=== PATIENT | female | born 1955 | race Caucasian/White ===

== ENCOUNTER 2018-04-22 14:11 | Emergency (ER) | payer SELFPAY ==
[2018-04-22 14:23] VITALS: BP 157/88; PULSE 68; TEMP 97.8; BMI 27.0
--- NOTE | 2018-04-22 17:53 | PDOC ---
Attending Attestation - Resident Resident Name: JazSaPaloma - ED Attending Attestation I have performed the following: I have examined & evaluated the patient, The case was reviewed & discussed with the resident, I agree w/resident's findings & plan, Exceptions are as noted - HPI HPI: 04/22/18 17:52 62 yo female p/w epigastric pain and urinary problems-"burning upon urination" . Denies nausea,vomiting or fever. She has had epigastric pain for a month 04/22/18 21:44 - Physicial Exam PE: 04/22/18 21:40 62 yo female with epigastric discomfort head ncat neck supple lungs cta b/l cvs [id number] abd no rebound,no guarding ext no deformities neuro axox3,ambulatory skin warm and dry psych appropriate 04/23/18 01:17 - Medical Decision Making 04/22/18 21:41 ekg is NSR @ 60 bpm.LVH 04/23/18 01:22 ct scan abd/pel did NOT show any diverticultis and also there was no evidence of hydronephrosis or kidney stones pt will follow up with GI
[2018-04-22] MEDS ORDERED: MAG HYDROX/AL HYDROX/SIMETH 30 ML UNIT-DOSE CUP PO ONE (17:55)
[2018-04-22] MEDS ORDERED: PANTOPRAZOLE 40 MG TABLET (FP) PO ONE (17:55)
--- NOTE | 2018-04-22 18:12 | PDOC ---
History of Present Illness - General Chief Complaint: Pain Stated Complaint: WEAKNESS Time Seen by Provider: 04/22/18 17:00 History Source: Patient Exam Limitations: Language Barrier - History of Present Illness Initial Comments: 04/22/18 18:10 Pt is a 62yo f with PMH of breast tumor s/p lumpectomy in 2002 presenting to ED with complaints of epigastric pain and burning when urinating. Pt says she gets epigastric pain when she drinks coffee or eats spicy foods, is asymptomatic otherwise. She states that this has been going on for years. She also has recent burning with urination and urinary frequency. She denies hematuria, fevers, chills, n/v/d, chest pain, sob, headaches, changes in vision. PMD: none PMH: see hpi PSH: lumpectomy Meds: aromacin? Allergies: nkda Past History - Past Medical History Allergies/Adverse Reactions: Allergies Allergy/AdvReac Type Severity Reaction Status Date / Time No Known Allergies Allergy Verified 04/22/18 14:20 Home Medications: Ambulatory Orders NK [No Known Home Medication] 04/22/18 - Suicide/Smoking/Psychosocial Hx Smoking History: Never smoked Review of Systems - Review of Systems Constitutional: No: Chills, Fever HEENTM: No: Recent change in vision, Double Vision Respiratory: No: Cough, Shortness of Breath Cardiac (ROS): No: Chest Pain, Lightheadedness, Syncope ABD/GI: Yes: Abdominal cramping (epigastric). No: Constipated, Diarrhea, Nausea , Rectal Bleeding, Vomiting, Tarry Stools : Yes: Burning, Frequency. No: Flank Pain, Hematuria Musculoskeletal: No: Back Pain, Joint Pain, Neck Pain Integumentary: No: Symptoms Reported Neurological: No: Headache, Numbness, Paresthesia, Tingling, Tremors *Physical Exam - Vital Signs Last Vital Signs Temp Pulse Resp BP Pulse Ox 97.8 F 68 18 157/88 100 04/22/18 14:21 04/22/18 14:21 04/22/18 14:21 04/22/18 14:21 04/22/18 14:21 - Physical Exam General Appearance: Yes: Nourished, Appropriately Dressed. No: Apparent Distress HEENT: positive: EOMI, MANAV, Pharynx Normal Neck: positive: Trachea midline, Supple. negative: Carotid bruit, Lymphadenopathy (R), Lymphadenopathy (L) Respiratory/Chest: positive: Lungs Clear, Normal Breath Sounds. negative: Crackles, Rales, Rhonchi, Stridor, Wheezing Cardiovascular: positive: Regular Rhythm, Regular Rate, S1, S2. negative: Edema , JVD, Murmur Vascular Pulses: Carotid (R): 2+, Carotid (L): 2+, Dorsalis-Pedis (R): 2+, Doralis-Pedis (L): 2+ Gastrointestinal/Abdominal: positive: Normal Bowel Sounds, Soft. negative: Distended, Guarding, Rebound, Tenderness Musculoskeletal: negative: CVA Tenderness Extremity: positive: Normal Capillary Refill Integumentary: positive: Normal Color, Dry, Warm Neurologic: positive: instructional material director II-XII NML intact, Fully Oriented, Alert, Normal Mood/ Affect, Normal Response, Motor Strength 11/03 ED Treatment Course - LABORATORY CBC & Chemistry Diagram: 04/22/18 18:12 04/22/18 18:11 Medical Decision Making - Medical Decision Making 04/22/18 19:17 Pt is a 62yo f with PMH of breast tumor s/p lumpectomy in 2002 presenting to ED with complaints of epigastric pain and burning when urinating. Vitals: wnl PE: benign DDx: uti, pyelonephritis, pancreatitis, gerd, cholecystitis low suspicion of pancreatitis cholecystitis due to lack of epigastric/ruq tenderness however will order labs higher suspicion of uti. cbc, cmp, ua, lipase ordered. Pt given maalox, protonix. UA negative. Will order spiral ct. If negative, pt can be dc home with pcp and gi follow up. Pt signed out to Dr. House 04/22/18 19:19 *DC/Admit/Observation/Transfer Diagnosis at time of Disposition: Abdominal pain Qualifiers: Abdominal location: epigastric Qualified Code(s): R10.13 - Epigastric pain - Referrals - Patient Instructions - Post Discharge Activity
[2018-04-22 18:16] LABS: URINE APPEARANCE CLEAR; URINE BILIRUBIN NEGATIVE (<2.0 mg/dL); URINE COLOR LTYELLOW; URINE GLUCOSE (UA) NEGATIVE (NEGATIVE); URINE KETONE NEGATIVE (NEGATIVE); URINE LEUK ESTERASE TRACE (NEGATIVE); URINE NITRITE NEGATIVE (NEGATIVE); URINE PROTEIN NEGATIVE (NEGATIVE); URINE UROBILINOGEN NEGATIVE mg/dL (0.2-1.0)
[2018-04-22 18:17] LABS: BASO % 0.6 % (0-2.0); HEMATOCRIT 39.6 % (32.4-45.2); LYMPH % 47.2 % (8-40); MCH 28.3 pg (25.7-33.7); MCHC 32.8 g/dl (32.0-36.0); MEAN CELL VOLUME 86.2 fl (80-96); MEAN PLT VOLUME 8.9 fl (7.5-11.1); MONO % 8.1 % (3.8-10.2); NEUT % 44.1 % (42.8-82.8); PLATELET COUNT 255 K/MM3 (134-434); RBC 4.59 M/mm3 (3.60-5.2); RDW 12.8 % (11.6-15.6); WHITE BLOOD COUNT 6.6 K/mm3 (4.0-10.0)
[2018-04-22] MEDS ORDERED: MAG HYDROX/AL HYDROX/SIMETH 30 ML UNIT-DOSE CUP ONE (18:21)
[2018-04-22] MEDS ORDERED: PANTOPRAZOLE 40 MG TABLET (FP) ONE (18:21)
[2018-04-22 18:48] LABS: ALBUMIN 3.9 g/dl (3.4-5.0); ALK PHOS 76 U/L (45-117); ANION GAP 6 MMOL/L (8-16); BILIRUBIN,TOTAL 0.3 mg/dL (0.2-1); BLOOD UREA NITROGEN 14 mg/dL (7-18); CHLORIDE 108 mmol/L (98-107); CO2 26 mmol/L (21-32); CREATININE 0.7 mg/dL (0.55-1.3); GLUCOSE,RANDOM 88 mg/dL (74-106); LIPASE 164 U/L (73-393); SGOT/AST 25 U/L (15-37); SGPT/ALT 36 U/L (13-61); SODIUM 140 mmol/L (136-145); TOT PROT 7.6 g/dl (6.4-8.2)
--- NOTE | 2018-04-22 19:17 | PDOC ---
*Physical Exam - Vital Signs Last Vital Signs Temp Pulse Resp BP Pulse Ox 97.8 F 68 18 157/88 100 04/22/18 14:21 04/22/18 14:21 04/22/18 14:21 04/22/18 14:21 04/22/18 14:21 ED Treatment Course - LABORATORY CBC & Chemistry Diagram: 04/22/18 18:12 04/22/18 18:11 - ADDITIONAL ORDERS Additional order review: Laboratory Results 04/22/18 04/22/18 04/22/18 18:11 18:07 17:36 Sodium 140 Potassium 4.0 Chloride 108 H Carbon Dioxide 26 Anion Gap 6 L BUN 14 Creatinine 0.7 Creat Clearance w eGFR > 60 Random Glucose 88 Calcium 9.0 Total Bilirubin 0.3 AST 25 ALT 36 Alkaline Phosphatase 76 Troponin I < 0.02 Cancelled Total Protein 7.6 Albumin 3.9 Lipase 164 Cancelled Urine Color Ltyellow Urine Appearance Clear Urine pH 6.0 Ur Specific [place] 1.014 Urine Protein Negative Urine Glucose (UA) Negative Urine Ketones Negative Urine Blood 2+ H Urine Nitrite Negative Urine Bilirubin Negative Urine Urobilinogen Negative Ur Leukocyte Esterase Trace Urine WBC (Auto) 3 Urine RBC (Auto) 18 04/22/18 18:12 RBC 4.59 MCV 86.2 MCHC 32.8 RDW 12.8 MPV 8.9 Neutrophils % 44.1 Lymphocytes % 47.2 H Monocytes % 8.1 Eosinophils % 0.0 Basophils % 0.6 - Medications Given in the ED: ED Medications Discontinued Medications Generic Name Dose Route Start Last Admin Trade Name Freq PRN Reason Stop Dose Admin Al Hydroxide/Mg Hydroxide 30 ml 04/22/18 17:55 04/22/18 18:27 Mylanta Oral Suspension - PO 04/22/18 17:56 30 ml ONCE ONE Administration Pantoprazole Sodium 40 mg 04/22/18 17:55 04/22/18 18:27 Protonix - PO 04/22/18 17:56 40 mg ONCE ONE Administration Medical Decision Making - Medical Decision Making Pt signed out by Dr. Sebastian. Pt currently in CT spiral to r/o kidney stones. UA showed blood 2+/RBC 18. Will provided 1L NS when she returns from CT. 04/22/18 19:25 Pt states she is feeling better after the mylanta and protonix were provided. Pt does not have an IV in at this time. We will provide PO water for pt once CT scan results return if there are no GI interventions necessary. Pt last name is YADI (not Rosalia), registration notified. 04/22/18 20:40 [id number] CT/SPIRAL- RENAL-STONE CT Rule out renal stone CT scan of the abdomen pelvis without oral and intravenous contrast Coronal and sagittal reformatted images were obtained No prior is available for comparison. The visualized lung base appears unremarkable and the heart is within normal limits in size. Note is made of slightly prominent fat within the pleural cavity and the left lung base, posteriorly. The liver is within normal limits in size with mild decreased attenuation compatible with a fatty liver. There is a simple cyst in the left hepatic lobe measuring 2.4 cm tiny low attenuation density in the right hepatic lobe, at the dome measuring 8 mm likely representing a cyst. The spleen and pancreas appear unremarkable. Partially distended gallbladder without gross intraluminal stones. There is a questionable small hiatus hernia. Moderately distended stomach without wall thickening. Both adrenal glands and both kidneys appear unremarkable. There is no evidence of hydroureteronephrosis, renal or ureteral stone, bilaterally. Partially distended urinary bladder without wall thickening or layering of intraluminal stones. There is no evidence of small bowel obstruction. Normal-appearing terminal ileum. The appendix was not visualized. Moderate amount of fecal residue in the colon without wall thickening. A few scattered diverticula are present without evidence of acute diverticulitis. Normal size uterus. No free air or free fluid in the abdomen and pelvis. No gross enlarged lymph nodes are identified. Visualized osseous structures appear intact . Impression: See discussion above There is no evidence of hydroureteronephrosis, renal or ureteral stone, bilaterally. Likely due 2 hepatic simple cysts, as described above. Possible few diverticula in the colon without evidence of acute diverticulitis. No CT evidence of an acute process in the abdomen and pelvis. Correlate clinically to determine further evaluation and follow-up. 04/22/18 20:56 No acute abdominal process, CT showed 2 hepatic simple cysts that may be causing epigastric pain. Pt labs were WNL (no increased WBC, AST/ALT, lipase WNL , troponin <.02. ECG was not in pt file with nursing staff, and not scanned into the system. Ordered ECG. Pending normal results, pt can be discharged to home with strict return precautions and follow-up. Pt has no PCP, will have pt make an appointment at [facility] (Dr. Gaxiola on-call). 04/22/18 21:00 ECG WNL. Pt to be discharged home with follow-up. Pt provided results of her CT and labwork. 04/22/18 21:45 *DC/Admit/Observation/Transfer Diagnosis at time of Disposition: Simple hepatic cyst Abdominal pain Qualifiers: Abdominal location: epigastric Qualified Code(s): R10.13 - Epigastric pain - Discharge Dispostion Disposition: HOME Condition at time of disposition: Improved Decision to Admit order: No - Referrals Referrals: [facility] [place] [facility] [Provider Group] Jose Gaxiola MD [Staff Physician] - - Patient Instructions Printed Discharge Instructions: DI for Abdominal Pain-Adult Additional Instructions: You were seen in the ER today for abdominal pain and pain with urination. The results of your labs and CT scan were normal. Please make an appointment to see a primary care doctor at the clinic to discuss your results and ensure your symptoms have resolved. Please return to the ER if you have worsening abdominal pain or worsening pain with urination, blood in your urine, inability to tolerate food or fluids, fevers, or any other concerns. Print Language: UPPER SORBIAN - Post Discharge Activity
[2018-04-22] MEDS ORDERED: SODIUM CHLORIDE 1,000 ML IV STA (19:26)
--- NOTE | 2018-04-23 12:51 | EKG ---
Test Reason : Blood Pressure : / mmHG Vent. Rate : 059 BPM Atrial Rate : 059 BPM P-R Int : 170 ms QRS Dur : 088 ms QT Int : 438 ms P-R-T Axes : 020 -25 006 degrees QTc Int : 433 ms SINUS BRADYCARDIA MINIMAL VOLTAGE CRITERIA FOR LVH, MAY BE NORMAL VARIANT NONSPECIFIC T WAVE ABNORMALITY ABNORMAL ECG Confirmed by MD NOEMÍ, MICHAEL ([id number]) on 04/23/2018 12:51:23 PM Referred By: Confirmed By:MICHAEL DOWD MD
== END 2018-04-22 21:51 | disposition home or self-care (01) ==
LOC: JER 14:11
DX: K76.89 Other specified diseases of liver (principal); R10.13 Epigastric pain
CPT/HCPCS: 36415; 74176; 80053; 81003; 81015; 83690; 84484; 85025; 87086; 93005; 93010; 99283-25